=== PATIENT | male | born 1985 | race Caucasian/White ===

== ENCOUNTER 2021-09-27 19:53 | Emergency (ER) | payer OTHER ==
[~2021-09-27] VITALS: Ht 180.3 cm; Wt 72.6 kg
[2021-09-27 20:05] VITALS: BP 151/114
--- NOTE | 2021-09-27 20:44 | NUR ---
Patient discharged to home in stable condition. Written and verbal after care instructions given. Patient verbalizes understanding of instruction.
== END 2021-09-27 20:48 | disposition home or self-care (01) ==
LOC: ER 20:04
DX: F19.10 Other psychoactive substance abuse, uncomplicated (principal); Z88.2 Allergy status to sulfonamides; Z88.8 Allergy status to other drugs, medicaments and biological substances
CPT/HCPCS: 82962-TC